=== PATIENT | female | born 1960 | race Caucasian/White ===

== ENCOUNTER 2018-06-03 12:39 | Outpatient (CLI) | payer OTHER ==
--- NOTE | 2018-06-03 13:52 | CT ---
CT SINUSES WITHOUT CONTRAST: HISTORY: Chronic sinusitis. COMPARISON: None. TECHNIQUE: Multiple contiguous axial images were obtained in a CT of the sinuses without contrast. Coronal refo rmats were performed. FINDINGS: Mucosal thickening and fluid is seen in the left maxillary sinus and left ethmoid air cells. Fluid i s also seen in the left sphenoid sinus. The frontal sinuses and right maxillary sinuses are well aer ated. The mastoid air cells are well aerated. The bilateral maxillary ostiomeatal units appear slightly narrowed by mucosal thickening in the maxil mckay sinuses. No nasal septal deviation is seen. The globes and retrobulbar soft tissues are unremarkable. The visualized intracranial structures are unremarkable. IMPRESSION: Mild left-sided sinus disease. POS: [facility]
== END 2018-06-03 12:40 | disposition home or self-care (01) ==
LOC: BICCT 12:39
PROVIDERS: ATTEND Allergy & Immunology
DX: J32.9 Chronic sinusitis, unspecified (principal)